=== PATIENT | male | born 1995 | race Caucasian/White ===

== ENCOUNTER 2022-05-09 09:13 | Emergency (ER) | payer SELFPAY ==
[2022-05-09 09:22] VITALS: BP 125/70; PULSE 73; RESP 14; TEMP 36.1; O2SAT 97
--- NOTE | 2022-05-09 09:27 | ED.DENTAL ---
HPI - Dental/Oral General Chief complaint: Dental/Oral Stated complaint: broken tooth - unable to afford dentist Time Seen by Provider: 05/09/22 09:23 History of Present Illness HPI Narrative: 27-year-old male presents the emergency room for evaluation of left lower molar pain. Patient reports she has been experiencing a throbbing pain to his left lower molar for approximately 1 week. States does not have a dentist. Related Data Allergies Allergy/AdvReac Type Severity Reaction Status Date / Time No Known Allergies Allergy Unverified 02/28/18 08:33 Review of Systems Review of Systems: CONSTITUTIONAL: Denies fever, chills, or sweats. EYES: Denies visual changes, redness, or discharge. ENT: Reports dental pain CARDIOVASCULAR: Denies chest pain, palpitations, or edema. RESPIRATORY: Denies cough or dyspnea. GASTROINTESTINAL: Denies abdominal pain, nausea, vomiting, or diarrhea. GENITOURINARY: Denies dysuria or hematuria. SKIN: Denies rash or itching. MUSCULOSKELETAL: Denies back pain, joint pain, or myalgia. NEUROLOGIC: Denies headache, numbness, dizziness, or weakness. PSYCHIATRIC: Denies anxiety or depression. Exam Narrative: GENERAL: Well-appearing, well-nourished, no physical limitations, and in no acute distress. HEAD: Normocephalic, atraumatic. EYES: Conjunctivae normal, PERRLA and EOMI. ENT: Dental: Tenderness and cavity noted to tooth #17. No erythema or swelling to the gingiva. NECK: Supple. No adenopathy or masses. CHEST: Clear to auscultation. No respiratory distress. No wheezes rales or rhonchi. No tenderness. HEART: Regular rate and rhythm. No murmur heard. Normal peripheral pulses. EXTREMITIES: Normal range of motion. No edema. No clubbing or cyanosis SKIN: Warm, dry, no rash. No noted wounds NEURO: No focal deficits. Alert and oriented x3. MAEW. CN's II-XI intact bilaterally, normal gait PSYCH: Cooperative. Normal mood and affect. Course Vital Signs Vital signs: Vital Signs Temperature 36.1 C L 05/09/22 09:22 Pulse Rate 73 05/09/22 09:22 Respiratory Rate 14 05/09/22 09:22 Blood Pressure 125/70 05/09/22 09:22 Pulse Oximetry 97 05/09/22 09:22 Temperature 36.1 C L 05/09/22 09:22 Pulse Rate 73 05/09/22 09:22 Respiratory Rate 14 05/09/22 09:22 Blood Pressure 125/70 05/09/22 09:22 Pulse Oximetry 97 05/09/22 09:22 Discharge Plan Discharge Clinical Impression: Toothache Patient Disposition: Home, Self-Care Condition: Stable Instructions: Antibiotic Form, Toothache (ED) Additional Instructions: You need to follow-up with a dentist in the next 1 to 2 weeks. I recommend following up with [facility]. May supplement ibuprofen or naproxen for pain Prescriptions: New amoxicillin-pot clavulanate 875-125 mg tablet 1 tablet PO Q12H 7 Days Qty: 14 0RF tramadol 50 mg tablet 50 mg PO Q6H PRN (Reason: pain) Qty: 21 0RF Follow-up/Referrals: PHYSICIAN,BIOMEDICAL INSTRUMENT TECHNICIAN [Primary Care Provider] - Stand Alone Forms: Work/School Release IP Time of Disposition: :
== END 2022-05-09 10:32 | disposition home or self-care (01) ==
LOC: ANHED 09:33
PROVIDERS: Emergency Provider Nurse Practitioner Family
DX: K08.89 Other specified disorders of teeth and supporting structures (principal)
CPT/HCPCS: 99283